=== PATIENT | female | born 1960 | race Two or more races ===

== ENCOUNTER 2022-03-04 06:00 | Day surgery (SDC) | payer OTHER ==
[~2022-03-04] VITALS: Ht 157.5 cm; Wt 63.5 kg
== END 2022-03-04 13:00 | disposition home or self-care (01) ==
LOC: CIR.AMB 06:00
PROVIDERS: ATTEND Surgery
DX: K80.10 Calculus of gallbladder with chronic cholecystitis without obstruction (principal); K29.70 Gastritis, unspecified, without bleeding; Z20.822 Contact with and (suspected) exposure to COVID-19; Z86.19 Personal history of other infectious and parasitic diseases

== ENCOUNTER 2022-03-04 18:40 | Emergency (ER) | payer OTHER ==
[~2022-03-04] VITALS: Ht 157.5 cm; Wt 63.5 kg
== END 2022-03-05 02:05 | disposition home or self-care (01) ==
LOC: ER 18:40
DX: R11.10 Vomiting, unspecified (principal)

== ENCOUNTER 2024-03-29 06:15 | Day surgery (SDC) | payer OTHER ==
[2024-03-23 10:58] VITALS: BP 129/82
[2024-03-23 11:34] LABS: URINE APPEARANCE Clear; URINE BILIRRUBIN Negative (NEGATIVE); URINE BLOOD Negative; URINE COLOR Yellow; URINE GLUCOSE Negative (NEGATIVE); URINE KETONE Negative (NEGATIVE); URINE LEUKOCYTE Negative; URINE NITRATE Negative; URINE PROTEIN Negative (NEGATIVE); URINE UROBILINOGEN 0.2 E.U./dl
[2024-03-23 11:36] LABS: URINE BACTERIA 414.8 uL (0.0-1933); URINE EPITHELIAL CELLS 13.5 uL (0.0-38.8)
[2024-03-23 11:37] LABS: HEMATOCRIT 42.2 % (36.0-45.00); HEMOGLOBIN 14.5 g/dL (12.0-15.00); MEAN CELL VOLUME 86.2 fL (80.00-100.00); MEAN CORPUSCULAR HEMOGLOBIN 29.7 pg (27.00-32.0); MEAN CORPUSCULAR HGB CONC 34.5 g/dl (32.0-36.0); PLATELET COUNT 284 K/uL (150-450); RED BLOOD COUNT 4.89 M/uL (4.00-6.00); RED CELL DISTRIBUTION WIDTH 13.6 % (11.5-14.5)
[2024-03-23 11:42] LABS: URINE CAST 0.29 uL (0.0-1.40)
[2024-03-23 12:00] LABS: INR 0.99; PARTIAL THROMBOPLASTIN TIME 25.9 SECONDS (22.0-34.0); PROTHROMBIN TIME 10.8 SECONDS (9.0-11.5)
[2024-03-23 12:36] LABS: BILIRUBIN TOTAL 0.62 mg/dL (0.3-1.2); CALCIUM 9.3 mg/dL (8.5-10.1); CREATININE SERUM 0.86 mg/dL (0.55-1.02); GFR 66.64; GLOBULINA 3.5 G/DL (2.4-3.5); POTASSIUM 4.31 mEq/L (3.5-5.1); TOTAL PROTEIN 7.5 gm/dL (6.4-8.2)
[~2024-03-29] VITALS: Ht 157.5 cm; Wt 63.5 kg
[2024-03-29] MEDS ORDERED: LIDOCAINE HCL 1%/EPINEPHRINE 20ML VIAL IJ ONE (12:12)
[2024-03-29] MEDS ORDERED: CEFAZOLIN SODIUM 1,000 MG VIAL ONE (12:12)
[2024-03-29] MEDS ORDERED: BUPIVACAINE HCL/MPF 0.5% 30ML VIAL ONE (12:12)
== END 2024-03-29 15:35 | disposition home or self-care (01) ==
LOC: CIR.AMB 06:15
PROVIDERS: ATTEND Surgery
DX: D21.6 Benign neoplasm of connective and other soft tissue of trunk, unspecified (principal); I10 Essential (primary) hypertension; J32.9 Chronic sinusitis, unspecified; E78.5 Hyperlipidemia, unspecified; F41.9 Anxiety disorder, unspecified